=== PATIENT | male | born 1950 | race Caucasian/White ===

== ENCOUNTER → 2017-04-14 | Outpatient (CLI) | payer MEDICARE | END | disposition home or self-care (01) | LOC: LAB 16:39 | PROVIDERS: ATTEND Urology | DX: N40.2 Nodular prostate without lower urinary tract symptoms (principal) | CPT/HCPCS: 84153 ==

== ENCOUNTER → 2021-07-23 | Outpatient (CLI) | payer MEDICARE | END | disposition home or self-care (01) | LOC: NPLAB 11:06 | PROVIDERS: ATTEND Urology | DX: R97.20 Elevated prostate specific antigen [PSA] (principal) | CPT/HCPCS: 36415; 84153 ==